=== PATIENT | male | born 1965 | race Caucasian/White ===

== ENCOUNTER 2024-07-06 14:33 | Emergency (ER) | payer MEDICAID, MEDICARE, OTHER ==
[~2024-07-06] VITALS: Ht 175.3 cm; Wt 103.5 kg
[2024-07-06] MEDS ORDERED: ROSU10TA61 PO (14:43)
[2024-07-06] MEDS ORDERED: VITA1CAP25 PO (14:43)
[2024-07-06] MEDS ORDERED: LOXA25CA2 PO (14:43)
[2024-07-06] MEDS ORDERED: DULO1CAP4 PO (14:43)
[2024-07-06] MEDS ORDERED: METF-839 PO (14:43)
[2024-07-06] MEDS ORDERED: JARD1TAB PO (14:43)
[2024-07-06 15:43] LABS: BASO # 0.1 10^3/uL (0.0-0.2); BASO % 0.6 % (0.0-1.0); EOS # 0.6 10^3/uL (0.0-0.5); EOS % 7.1 % (0.0-3.0); HEMATOCRIT 48.4 % (42.0-52.0); LYMPH # 1.5 10^3/uL (1.5-5.0); LYMPH % 18.7 % (24.0-44.0); MEAN CORPUSCULAR HEMOGLOBIN 30.7 pg (27.0-33.0); MEAN CORPUSCULAR HGB CONC 33.1 g/dl (32.0-36.5); MEAN CORPUSCULAR VOLUME 92.7 fl (80.0-96.0); MONO # 0.6 10^3/uL (0.0-0.8); MONO % 7.1 % (2.0-8.0); NEUTROPHILS # 5.3 10^3/uL (1.5-8.5); NEUTROPHILS % 66.1 % (36.0-66.0); PLATELET COUNT, AUTOMATED 193 10^3/uL (150-450); RED BLOOD COUNT 5.22 10^6/uL (4.30-6.10)
[2024-07-06 15:56] LABS: ERYTHROCYTE SEDIMENTATION RATE 39 mm/hr (0-20)
[2024-07-06 16:11] LABS: BLOOD UREA NITROGEN 11 MG/DL (9-23); C REACTIVE PROTEIN QUANTITATIV 0.56 MG/DL (<1.0); CALCIUM LEVEL 9.4 MG/DL (8.5-10.1); CARBON DIOXIDE LEVEL 24 MMOL/L (20-31); CHLORIDE LEVEL 112 MMOL/L (98-107); CREATININE FOR GFR 0.76 MG/DL (0.70-1.30); GLOMERULAR FILTRATION RATE > 60.0 (>56); GLUCOSE, FASTING 134 MG/DL (60-100); POTASSIUM SERUM 4.3 MMOL/L (3.5-5.1); SODIUM LEVEL 143 MMOL/L (136-145)
[2024-07-06 17:38] VITALS: BP 140/80; TEMP 99.2; O2SAT 98
[2024-07-06] MEDS: CLINDAMYCIN 900 MG in IV 1 EA IV ONE (21:51)
[2024-07-06] MEDS ORDERED: CLIN-250 PO (21:59)
== END 2024-07-06 22:49 | disposition home or self-care (01) ==
LOC: M ED 14:33
DX: L03.114 Cellulitis of left upper limb (principal); E11.9 Type 2 diabetes mellitus without complications; E78.5 Hyperlipidemia, unspecified; F17.200 Nicotine dependence, unspecified, uncomplicated
CPT/HCPCS: 80048; 85025; 85652; 86140; 87040; 96365; 99284; J0737

== ENCOUNTER → 2025-02-16 | Outpatient (CLI) | payer OTHER ==
[~2025-02-16] MED LIST: CLIN-250 PO; DULO1CAP4 PO; JARD1TAB PO; LOXA25CA2 PO; METF-839 PO; ROSU10TA61 PO; VITA1CAP25 PO
== END ==
LOC: M RAD 08:23
PROVIDERS: ATTEND Internal Medicine
DX: I11.9 Hypertensive heart disease without heart failure (principal); E11.9 Type 2 diabetes mellitus without complications; Z82.49 Family history of ischemic heart disease and other diseases of the circulatory system